=== PATIENT | male | born 1990 | race Caucasian/White ===

== ENCOUNTER 2016-07-05 19:28 | Emergency (ER) | payer MEDICAID ==
[~2016-07-05] VITALS: Ht 185.4 cm; Wt 79.3 kg
[2016-07-05 19:48] VITALS: Ht 185.4 cm; Wt 79.3 kg
[2016-07-05] MEDS ORDERED: KETOROLAC 30 MG INJ IV STA (20:41)
[2016-07-05] MEDS ORDERED: ACETAMINOPHEN 500 MG TAB PO STA (20:41)
[2016-07-05] MEDS ORDERED: SOD CHLORIDE 0.9% 1,000 ML IV STA (20:41)
--- NOTE | 2016-07-05 21:21 | RADRPT ---
PROCEDURE: XR Chest. CLINICAL INDICATION: Cough and fever TECHNIQUE: PA and lateral view of the chest were obtained COMPARISON: None FINDINGS: The cardiomediastinal silhouette is within normal limits. The lungs and pleural spaces are clear. The soft tissues and osseous structures are unremarkable. IMPRESSION: No acute cardiopulmonary disease. RPTAT: HPNM Physician Robyn Date Time Electronically viewed and signed by Benoit Desai Physician on 07/05/2016 21:20 /
[2016-07-05 21:51] VITALS: BP 118/60; RESP 18; TEMP 98.9
[2016-07-05] MEDS ORDERED: AZIT250T94 PO (22:00)
[2016-07-05] MEDS ORDERED: IBUP-1542 PO (22:00)
--- NOTE | 2016-07-05 22:00 | ERD ---
ER Documentation Chief Complaint Date/Time DATE: 07/05/16 Chief Complaint Fever, cough, nasal congestion HPI The patient is a 25-year-old male who presents to the Emergency Department with complaint of fever, cough and nasal congestion for the past 3 days. The patient reports that since onset of his symptoms, he has been taking DayQuil and NyQuil, with only minimal symptomatic relief. He denies use of any antipyretic medications. He reports nasal congestion, rhinorrhea, myalgias and mildly-productive cough of clear-colored sputum. Otherwise, denies neck pain or neck stiffness. Denies new rashes. Denies sore throat. Denies abdominal pain, nausea, vomiting or diarrhea. Denies testicular pain or swelling. Denies dysuria, hematuria or flank pain. Denies any sick contacts with similar symptoms. ROS All systems reviewed and are negative except as per history of present illness. Medications Home Meds Active Scripts Pseudoephedrine Hcl (Sudafed 12 Hour) 120 Mg Tablet.sa, 120 MG PO BID, #30 Prov:SHUBHAM LONDON PA-C 07/05/16 Albuterol Sulfate* (Proair HFA*) 8.5 Gm Hfa.aer.ad, 2 PUFF INH Q4, #1 INHALER Prov:SHUBHAM LONDON PA-C 07/05/16 Azithromycin* (Zithromax*) 250 Mg Tablet, 250 MG PO .ZPACK DIRECTED, #6 TAB TAKE 500 MG (2 TABS) THE FIRST DAY THEN 250 MG (1 TAB) DAYS 2-5 Prov:SHUBHAM LONDON PA-C 07/05/16 Ibuprofen* (Motrin*) 600 Mg Tab, 600 MG PO Q6, #30 TAB Prov:SHUBHAM LONDON PA-C 07/05/16 PMhx/Soc History of Surgery: No Anesthesia Reaction: No Hx Neurological Disorder: No Hx Respiratory Disorders: No Hx Cardiac Disorders: No Hx Psychiatric Problems: No Hx Miscellaneous Medical Probl: No Hx Alcohol Use: No Hx Substance Use: No Hx Tobacco Use: No Physical Exam Vitals Vital Signs Date Time Temp Pulse Resp B/P Pulse Ox O2 Delivery O2 Flow Rate FiO2 07/05/16 22:21 89 07/05/16 21:51 98.9 105 18 118/60 97 Room Air 07/05/16 19:48 101.9 122 20 127/71 97 Physical Exam GENERAL: Well-developed, well-nourished, in no acute distress HEENT: Head is normocephalic, atraumatic. No scleral pallor or icterus. Pupils equal, round and reactive to light. Extraocular movements intact. Conjunctiva pink. Bilaterally tympanic membranes are clear with no evidence of erythema, effusion or dulling of the light reflex. Moist mucous membranes. No pharyngeal erythema or exudates. Uvula is midline. NECK: Supple. No masses, no tenderness, no lymphadenopathy. Trachea midline. No nuchal rigidity. Full range of motion. RESPIRATORY: Lungs are clear to auscultation bilaterally. Prolonged expiratory phase. No rales, rhonchi or wheezing. Equal breath sounds. Normal expiratory effort. CARDIOVASCULAR: Tachycardic. Regular rhythm. S1 and S2 normal. No murmurs, rubs , or gallops. GASTROINTESTINAL: Abdomen is soft, nontender, and nondistended. No guarding, no rebound tenderness. Normal bowel sounds. No abdominal bruits. No gross peritonitis. FLANK: No CVA tenderness, no mass or swelling. BACK: No midline tenderness. EXTREMITIES: No clubbing, cyanosis, or edema. Normal skin perfusion. Full range of motion of both the upper and lower extremities bilaterally. Muscle tone is normal. No focal swelling or erythema. Distal pulses are palpable, 2+ bilaterally. Capillary refill is less than 2 seconds. NEUROLOGIC: The patient is alert, awake, and oriented x 3. No focal neurologic deficits. Cranial nerves are grossly intact. Gait is observed and normal. There is no ataxia. Motor normal in all extremities. Sensation grossly intact. Coordination normal. Speech is normal. Normal manager environmental health strength bilaterally. INTEGUMENT: Skin is clean, dry and intact. No rashes, lesions or petechiae present. Normal turgor. PSYCHIATRIC: Appropriate; Cooperative. Results 24 hrs Laboratory Tests Test 07/05/16 20:55 Monoscreen Negative Current Medications Medications (Trade) Dose Ordered Sig/Aure Route PRN Reason Start Time Stop Time Status Last Admin Dose Admin Sodium Chloride (NS) 1,000 ml @ 1,000 mls/hr Q1H STAT IV 07/05/16 20:41 07/05/16 21:40 DC 07/05/16 20:51 Ketorolac Tromethamine (Toradol) 30 mg ONCE STAT IV 07/05/16 20:41 07/05/16 20:44 DC 07/05/16 20:53 Acetaminophen (Tylenol Tab) 1,000 mg ONCE STAT PO 07/05/16 20:41 07/05/16 20:44 DC 07/05/16 20:54 Procedures/MDM DIAGNOSTIC TESTS AND INTERPRETATION: PROCEDURE: XR Chest. CLINICAL INDICATION: Cough and fever TECHNIQUE: PA and lateral view of the chest were obtained COMPARISON: None FINDINGS:The cardiomediastinal silhouette is within normal limits. The lungs and pleural spaces are clear. The soft tissues and osseous structures are unremarkable. IMPRESSION: No acute cardiopulmonary disease. Physician Robyn Date Time Electronically viewed and signed by Benoit Desai Physician on 07/05/2016 21 :20 Microbiology INFLUENZA A & B BY EIA Final INFLU A&B BY EIA INFLUENZA A NEGATIVE (Ref Range Neg) INFLUENZA B NEGATIVE (Ref Range Neg) MEDICAL DECISION MAKING: This is a 25-year-old male presenting to the emergency department complaining of fever, generalized body aches, nasal congestion and productive cough. On physical examination the patient had a prolonged expiratory phase, but with equal breath sounds auscultated. No rales, rhonchi or wheezing were noted. He was febrile, with a temperature of 101.9 F, and tachycardic with a heart rate of 122 bpm. Otherwise, no tachypnea, no signs of respiratory distress. He had a 97% O2 saturation on room air. He had no retractions, no increased work of breathing, no nasal flaring, no accessory muscle use. He exhibited no altered mental status, neurologic deficits or meningeal signs. Differential diagnosis includes, but is not limited to, pneumonia, pulmonary edema, sinusitis, foreign body, pertussis, upper respiratory infection, asthma, allergic rhinitis, GERD, bronchitis, allergic reaction, influenza, pharyngitis. InfluenZa A and B are negative. No acute cardiopulmonary abnormalities were noted on the diagnostic chest x-ray performed. After rest and administration of Tylenol, Toradol and fluids the patient reports no new complaints and reports feeling better, with no shortness of breath or respiratory distress. His fever and tachycardia resolved. Upon my review and interpretation of the patient's presentation and ER course, I believe the patient's symptoms are most consistent with acute febrile illness and acute bronchitis, possibly bacterial in etiology. No evidence of apnea, respiratory failure, dehydration, meningitis or other life-threatening etiology. The patient is well-appearing. He had no focal evidence of pneumonia. Patient's neck was supple, with no altered mental status, and therefore I doubt meningitis. Oropharynx was clear, with no erythema, exudates, petechiae, no associated cervical lymphadenopathy, and therefore I doubt streptococcal pharyngitis. Tympanic membranes were clear bilaterally with no erythema or bulging noted, and therefore I doubt otitis media. At this time, the patient is in stable condition and not experiencing any current shortness of breath, wheezing or any signs of respiratory distress, and therefore can be discharged home with a prescription for Ibuprofen, Sudafed, ProAir HFA and Z-anna, and strict return precautions for signs of deteriorating or worsening condition. The patient is advised to follow up with his primary care provider within 2-3 days for reevaluation and further management or return to the ER sooner for any worsening symptoms. I shared my medical decision making and plan with the patient at length and in great detail, and he verbally understands and agrees with the plan for further observation and care as an outpatient. At the time of discharge all questions were answered. Departure Diagnosis: Primary Impression: Acute bronchitis Bronchitis organism: unspecified organism Qualified Code: J20.9 - Acute bronchitis, unspecified organism Additional Impression: Acute febrile illness Condition: Stable Patient Instructions: Acute Bronchitis, Bronchitis, Antiobiotic Treatment ( Adult), Fever Control (Adult) Additional Instructions: Call your primary care doctor TOMORROW for an appointment during the next 2-3 days.See the doctor sooner or return here if your condition worsens before your appointment time. SHUBHAM LONDON PA-C Jul 05, 2016 22:00
[2016-07-05] MEDS ORDERED: ALBU8.5H3 INH (22:01)
[2016-07-05] MEDS ORDERED: PSEU120T51 PO (22:11)
[2016-07-05 22:21] VITALS: PULSE 89
== END 2016-07-05 22:21 | disposition home or self-care (01) ==
LOC: FTE 19:28
DX: J20.9 Acute bronchitis, unspecified (principal)
CPT/HCPCS: 36415; 71020; 86308; 87400; 96374; J1885; J7030; Z7502; Z7610